=== PATIENT | male | born 1960 | race Caucasian/White ===

== ENCOUNTER 2018-06-04 05:05 | Inpatient (IN) | payer SELFPAY ==
[~2018-06-04] VITALS: Ht 200.7 cm; Wt 63.0 kg
[2018-06-04] MEDS ORDERED: SODIUM CHLORIDE 0.9% 1,000 ML IV ONE (05:26)
[2018-06-04 07:12] LABS: CLARITY URINE CLEAR (CLEAR); COLOR URINE YELLOW (YELLOW); KETONES URINE NEGATIVE (NEGATIVE); LEUKOCYTE ESTERASE URINE NEGATIVE (NEGATIVE); NITRITE URINE NEGATIVE (NEGATIVE); OCCULT BLOOD URINE 1+ (NEGATIVE); PH URINE 6.5 (4.5-8.0); PROTEIN URINE 2+ (NEGATIVE); SPECIFIC GRAVITY URINE 1.006 (1.005-1.030); UROBILINOGEN URINE 0.2 E.U./dL (0.2-1.0)
[2018-06-04 07:18] LABS: HEMATOCRIT. 47.2 % (42.0-52.0); HEMOGLOBIN. 15.7 g/dL (14.0-18.0); MEAN CORPUSCULAR HEMOGLOBIN 32.8 pg (28.0-32.0); MEAN CORPUSCULAR VOLUME 98.2 fL (80.0-94.0); MEAN PLATELET VOLUME 7.3 fl (7.4-10.4); PLATELET 234 x1000/uL (130-400); RED CELL DISTRIBUTION WIDTH 13.7 % (11.6-14.6)
[2018-06-04 07:22] LABS: CHLORIDE 109 mEq/L (98-107)
[2018-06-04 07:30] LABS: ETHANOL BLOOD 81 mg/dL
[2018-06-04] MEDS ORDERED: ASPIRIN 325MG TABLET PO ONE (08:15)
[2018-06-04 08:36] LABS: PLATELET ESTIMATE NORMAL
[2018-06-04] MEDS ORDERED: LORAZEPAM 2MG/ML CPJ IV PRN (09:15)
[2018-06-04] MEDS ORDERED: MVI, ADULT NO.1 10 ML, FOLIC ACID 1 MG, THIAMINE HCL 100 MG in SODIUM CHLORIDE 0.9% 1,0... IV SCH ×4 (09:15)
[2018-06-04] MEDS ORDERED: GUAIFENESIN 200MG/10ML SUGAR FREE UDC PO PRN (09:15)
[2018-06-04] MEDS ORDERED: ONDANSETRON HCL 4MG/2ML INJ IV PRN (09:15)
[2018-06-04] MEDS ORDERED: DOCUSATE SODIUM 100MG CAPSULE PO PRN (09:15)
[2018-06-04] MEDS ORDERED: DIPHENHYDRAMINE 50MG/ML VIAL IV PRN (09:15)
[2018-06-04] MEDS ORDERED: MORPHINE SULFATE 4 MG/ML CPJ (NOT FOR IM USE) IV PRN (09:15)
[2018-06-04] MEDS ORDERED: HYDROCODONE/ACETAMINOPHEN 5/325MG TABLET PO PRN (09:15)
[2018-06-04] MEDS ORDERED: NA PHOS,M-B/NA PHOS,DI-BA ENEMA 118ML PR PRN (09:15)
[2018-06-04] MEDS ORDERED: MAGNESIUM/ALUMINUM HYDROXIDE/SIMETHICONE 30ML UDC PO PRN (09:15)
[2018-06-04] MEDS ORDERED: ACETAMINOPHEN 325MG TABLET PO PRN (09:15)
[2018-06-04] MEDS ORDERED: CLONIDINE 0.1MG TABLET PO PRN (09:15)
[2018-06-04] MEDS ORDERED: MVI, ADULT NO.1 10 ML, FOLIC ACID 1 MG, THIAMINE HCL 100 MG in SODIUM CHLORIDE 0.9% 1,0... IV NR ×4 (10:45)
[2018-06-04 15:43] LABS: T4 FREE 0.91 ng/dL (0.76-1.46)
[2018-06-04 21:50] VITALS: BP 113/71
[2018-06-04 23:44] LABS: CREATINE KINASE 171 IU/L (39-308); CREATINE KINASE MB FRACTION 4.4 ng/mL (0.5-3.6)
[2018-06-04 23:55] LABS: CHLORIDE 106 mEq/L (98-107)
[2018-06-05] VITALS: BP 107/63
[2018-06-05 02:57] VITALS: BP 113/71
[2018-06-05 04:00] VITALS: BP 102/69
[2018-06-05 06:37] LABS: BASOPHILS % 0.4 % (0.0-2.0); EOSINOPHILS % 1.1 % (0.0-5.0); HEMATOCRIT. 41.1 % (42.0-52.0); HEMOGLOBIN. 14.1 g/dL (14.0-18.0); LYMPHOCYTES % 23.6 % (20.0-50.0); MEAN CORPUSCULAR HEMOGLOBIN 33.3 pg (28.0-32.0); MEAN CORPUSCULAR VOLUME 96.8 fL (80.0-94.0); MONOCYTES % 9.9 % (2.0-8.0); PLATELET 217 x1000/uL (130-400); RED BLOOD CELL COUNT 4.24 mill/uL (4.7-6.1); RED CELL DISTRIBUTION WIDTH 13.6 % (11.6-14.6)
[2018-06-05 06:53] LABS: CHLORIDE 105 mEq/L (98-107)
[2018-06-05 07:29] LABS: CREATINE KINASE 153 IU/L (39-308); CREATINE KINASE MB FRACTION 3.3 ng/mL (0.5-3.6); HDL CHOLESTEROL 86 mg/dL (40-59); LDL CHOLESTEROL 71 mg/dL (5-100)
[2018-06-05 08:00] VITALS: BP 105/66
[2018-06-05] MEDS: ASPIRIN 81MG EC TABLET PO SCH (08:18)
[2018-06-05 12:00] VITALS: BP 106/62
[2018-06-05 16:00] VITALS: BP 98/65
[2018-06-05 20:07] LABS: BG BASE EXCESS -13.4 mmol/L (-2.0-2.0); BG CARBOXYHEMOGLOBIN 0.3 % (0.5-1.5); BG DEOXYHEMOGLOBIN 0.4 % (0.0-5.0); BG FRACTION INSPIRED OXYGEN 100; BG HCO3 ACT 13.1 mmol/L (22.0-26.0); BG METHEMOGLOBIN 0.6 % (0.0-1.5); BG OXYGEN SATURATION 99.6 % (92.0-98.5); BG OXYHEMOGLOBIN 98.7 % (94.0-97.0); BG PCO2 32.9 mmHg (35.0-45.0); BG PH 7.217 (7.350-7.450); BG PO2 400.2 mmHg (75.0-100.0); BG SAMPLE SITE LEFT RADIAL; BG VENT MODE MASK - NRB
[2018-06-06] VITALS: BP 107/77
[2018-06-06] MEDS: SODIUM CHLORIDE 0.45% 1,000 ML IV SCH ×3 (00:08→20:45)
[2018-06-06 04:00] VITALS: BP 111/74
[2018-06-06 08:00] VITALS: BP 110/73
[2018-06-06] MEDS: ASPIRIN 81MG EC TABLET PO SCH (10:01)
[2018-06-06 12:00] VITALS: BP 108/67
[2018-06-06 16:00] VITALS: BP 98/64
[2018-06-06 20:00] VITALS: BP 100/62
[2018-06-07] VITALS: BP 106/69
[2018-06-07 04:00] VITALS: BP 102/62
[2018-06-07] MEDS: ASPIRIN 81MG EC TABLET PO SCH (08:06)
[2018-06-07] MEDS: SODIUM CHLORIDE 0.45% 1,000 ML IV SCH (08:06)
[2018-06-07 12:00] VITALS: BP 101/68
[2018-06-07 12:43] VITALS: BP 101/68
[2018-06-07] MEDS ORDERED: EPINEPHRINE 0.1MG/ML (1:10,000) 10ML SYR ONE (14:29)
[2018-06-07] MEDS ORDERED: SUCCINYLCHOLINE CHLORIDE 200MG/10ML IV ONE (14:29)
[2018-06-07] MEDS ORDERED: SODIUM BICARBONATE 7.5% 0.9 MEQ/ML 50ML SYR IV ONE (14:29)
[2018-06-07] MEDS ORDERED: CALCIUM CHLORIDE 1GM/10ML SYR IV ONE (14:29)
[2018-06-07] MEDS ORDERED: AMIODARONE HCL 50MG/ML 3ML VIAL IV ONE (14:29)
[2018-06-07] MEDS ORDERED: ATROPINE SULFATE 1MG/10ML SYR ONE (14:29)
[2018-06-07] MEDS ORDERED: ETOMIDATE 2MG/ML 10ML VIAL IV ONE (14:29)
[2018-06-07] MEDS ORDERED: ALTEPLASE 50MG/VIAL IV NR ×2 (15:30)
== END 2018-06-07 15:44 | disposition expired | DRG 190 ==
LOC: ER 05:27 → 5WST 08:08 → EDBEDREQ 08:29 → ENRESERV 18:57
PROVIDERS: ADMIT Internal Medicine; ATTEND Internal Medicine
PROC: 0BH17EZ Insertion of Endotracheal Airway into Trachea, Via Natural or Artificial Opening (ICD-10-PCS; principal; 2018-06-07)
PROC: 5A12012 Performance of Cardiac Output, Single, Manual (ICD-10-PCS; 2018-06-07)
DX: I21.4 Non-ST elevation (NSTEMI) myocardial infarction (principal); I26.99 Other pulmonary embolism without acute cor pulmonale; I95.9 Hypotension, unspecified; I42.6 Alcoholic cardiomyopathy; R65.10 Systemic inflammatory response syndrome (SIRS) of non-infectious origin without acute organ dysfunction; E86.0 Dehydration; M48.02 Spinal stenosis, cervical region; D32.0 Benign neoplasm of cerebral meninges; F10.239 Alcohol dependence with withdrawal, unspecified; E87.6 Hypokalemia; D18.09 Hemangioma of other sites; F10.229 Alcohol dependence with intoxication, unspecified; I10 Essential (primary) hypertension; I46.9 Cardiac arrest, cause unspecified; Z82.41 Family history of sudden cardiac death
CPT/HCPCS: 31500; 36415; 36600; 71045; 71250; 80048; 80061; 82375; 82550; 82553; 82805; 82962; 83036; 83880; 84439; 84443; 84484; 85379; 92950; 93005; 93306; 96365; 96366; 99285; G0482; J0282; J0330; J0461; J2060; J2997; J3411; J3490; J7030; J7040